=== PATIENT | female | born 1970 | race Caucasian/White ===

== ENCOUNTER 2017-04-14 22:22 | Emergency (ER) | payer OTHER ==
[~2017-04-14] VITALS: Ht 157.5 cm; Wt 67.6 kg
[~2017-04-14 22:22] MED LIST: CLON0.1T PO; HYDR12.5 PO; INDERAL PO; METO-302 PO
--- NOTE | 2017-04-14 22:53 | NUR ---
Pt ambulated to room, c/o abd pain due to constipation. Dr. Staples at bedside for MSE
[2017-04-14 23:38] LABS: *URINE HCG, QUAL NEGATIVE (NEGATIVE)
[2017-04-15] MEDS ORDERED: MAGNESIUM CITRATE 296 ML BOTTLE PO ONE
--- NOTE | 2017-04-15 00:15 | NUR ---
Pt stable for discharge per Dr. Staples. Pt given ACI. Pt verbalized understanding of dc instructions. Pt ambulated out of ER with steady gait.
[2017-04-15] MEDS ORDERED: MAGNESIUM HYDROXIDE 30 ML LIQUID UDC ONE (00:16)
[2017-04-15] MEDS ORDERED: MAGNESIUM CITRATE 296 ML BOTTLE ONE (00:16)
[2017-04-15 00:18] VITALS: BP 141/67
[2017-04-15] MEDS ORDERED: MAGNESIUM HYDROXIDE 30 ML LIQUID UDC PO ONE ×2 (00:30)
== END 2017-04-15 00:15 | disposition home or self-care (01) ==
LOC: ER 22:23
DX: K59.00 Constipation, unspecified (principal); I10 Essential (primary) hypertension; Z90.49 Acquired absence of other specified parts of digestive tract
CPT/HCPCS: 74000; 84703; 99285; A4663

== ENCOUNTER 2024-04-19 22:17 | Emergency (ER) | payer BC ==
[~2024-04-19] VITALS: Ht 157.5 cm; Wt 63.5 kg
[~2024-04-19 22:17] MED LIST changes: -METO-302 PO; +METO-356 PO
[2024-04-19 22:22] VITALS: O2SAT 98
[2024-04-19] MEDS ORDERED: ACETAMINOPHEN 650 MG/20.3 ML LIQUID UDC ONE (22:59)
[2024-04-19] MEDS: ACETAMINOPHEN 650 MG/20.3 ML LIQUID UDC PO ONE (23:00)
[2024-04-19] MEDS ORDERED: NAPR-1009 PO (23:59)
[2024-04-19] MEDS ORDERED: CYCL5TAB PO (23:59)
== END 2024-04-20 00:15 | disposition home or self-care (01) ==
LOC: ER 22:24
DX: S29.012A Strain of muscle and tendon of back wall of thorax, initial encounter (principal); S80.02XA Contusion of left knee, initial encounter; S80.11XA Contusion of right lower leg, initial encounter; Z90.49 Acquired absence of other specified parts of digestive tract; Z79.899 Other long term (current) drug therapy; I11.9 Hypertensive heart disease without heart failure; V89.2XXA Person injured in unspecified motor-vehicle accident, traffic, initial encounter; Y93.89 Activity, other specified; Y92.410 Unspecified street and highway as the place of occurrence of the external cause; Y99.8 Other external cause status
CPT/HCPCS: 71046; 73590; A4606; A4663

== ENCOUNTER 2025-02-12 00:04 | Emergency (ER) | payer BC ==
[~2025-02-12] VITALS: Ht 157.5 cm; Wt 63.5 kg
[~2025-02-12 00:04] MED LIST changes: +CYCL5TAB PO; +NAPR-1009 PO
[2025-02-12 00:08] VITALS: BP 151/94; O2SAT 96
[2025-02-12 01:46] LABS: PLATELET COUNT (AUTO) 242 K/uL (179-408); RED BLOOD CELL COUNT(AUTO) 4.79 MIL/uL (3.63-4.92); RED CELL DISTRIBUTION WIDTH 14.2 % (12.3-17.7); WHITE BLOOD COUNT (AUTO) 5.7 K/uL (3.8-11.8)
[2025-02-12 01:51] LABS: CREATININE 0.5 mg/dL (0.6-1.3); SODIUM SERUM 143.0 mmol/L (136-145); UREA NITROGEN, BLOOD 17.0 mg/dL (7-18)
[2025-02-12 01:56] LABS: ASPARTATE AMINOTRANSFERASE 14.0 U/L (15-37); TOTAL PROTEIN, SERUM 7.8 g/dL (6.4-8.2)
== END 2025-02-12 01:40 | disposition left against medical advice (07) ==
LOC: ER 00:09
DX: R20.0 Anesthesia of skin (principal); M79.672 Pain in left foot; R03.0 Elevated blood-pressure reading, without diagnosis of hypertension; R94.31 Abnormal electrocardiogram [ECG] [EKG]; E78.5 Hyperlipidemia, unspecified; I10 Essential (primary) hypertension; Z90.49 Acquired absence of other specified parts of digestive tract; Z87.19 Personal history of other diseases of the digestive system
CPT/HCPCS: 36415; 73620; 83735; 84443; 85025; 85730; A4606; A4663